=== PATIENT | male | born 1955 | race Caucasian/White ===

== ENCOUNTER 2022-03-23 08:49 | Inpatient (IN) | payer OTHER, MEDICARE ==
[~2022-03-23] VITALS: Ht 170.2 cm; Wt 95.3 kg
[~2022-03-23 08:49] MED LIST: DIAZ5 PO; OXYACE5T PO
[2022-03-23] MEDS ORDERED: METO25ER PO (09:05)
[2022-03-23 09:15] LABS: Calcium, Ionized (POC) 1.12 mmol/L (1.10-1.46); Chloride (POC) 103 mmol/L (98-108); Creatinine (POC) 0.8 mg/dL (0.8-1.3); Glucose (ISTAT POC) 153 mg/dL (70-99); Hemoglobin (POC) 16.7 g/dL (13.5-17.5); Potassium (POC) 4.3 mmol/L (3.5-5.5); Sodium (POC) 138 mmol/L (135-148); Total CO2 (POC) 22 mmol/L (21-32)
[2022-03-23 09:19] LABS: BASOPHILS ABSOLUTE AUTO 0.07 K/mm3 (0.00-0.23); BASOPHILS PERCENT AUTO 1 % (0-2); EOSINOPHILS ABSOLUTE AUTO 0.15 K/mm3 (0.00-0.68); EOSINOPHILS PERCENT AUTO 1 % (0-6); Hematocrit 45.2 % (37.0-53.0); Hemoglobin 16.1 g/dL (13.5-17.5); IMMATURE GRAN ABSOLUTE AUTO 0.05 K/mm3 (0.00-0.10); IMMATURE GRAN PERCENT AUTO 0 % (0-1); LYMPHOCYTES ABSOLUTE AUTO 3.98 K/mm3 (0.84-5.20); LYMPHOCYTES PERCENT AUTO 31 % (21-46); MONOCYTES PERCENT AUTO 6 % (4-13); Mean Corpuscular HGB 31.7 pg (26.0-34.0); Mean Corpuscular HGB Conc 35.6 g/dL (31.5-36.5); Mean Corpuscular Volume 89 fL (80-100); Mean Platelet Volume 9.7 fL (9.1-12.4); NEUTROPHILS ABSOLUTE AUTO 7.77 K/mm3 (1.96-9.15); NEUTROPHILS PERCENT AUTO 61 % (41-73); Platelet Count 235 K/mm3 (150-400); RDW Coefficient Variation 11.7 % (11.7-14.2); RDW Standard Deviation 38.2 fL (35.1-46.3); Red Blood Cell Count 5.08 M/mm3 (4.30-5.90); White Blood Cell Count 12.82 K/mm3 (4.00-11.30)
[2022-03-23 09:31] LABS: Albumin, Blood 4.6 g/dL (3.4-5.0); Albumin/Globulin Ratio 1.4 (0.8-1.8); Bilirubin, Total 0.9 mg/dL (0.1-1.0); Bun/Creatinine Ratio 24.9 (12.0-20.0); Calcium, Blood 9.9 mg/dL (8.5-10.1); Creatinine, Blood 0.8 mg/dL (0.60-1.20); Globulin, Blood 3.3 g/dL (2.2-4.0); Potassium, Blood 4.3 mmol/L (3.5-5.5); Total Protein, Blood 7.9 g/dL (6.4-8.2)
[2022-03-23 10:11] LABS: Influenza A, PCR NEGATIVE (NEGATIVE); Influenza B, PCR NEGATIVE (NEGATIVE); Resp Syncytial Virus, PCR NEGATIVE (NEGATIVE); SARS-Cov-2 (COVID-19) PCR, MMC NEGATIVE (NEGATIVE)
[2022-03-23 10:20] LABS: International Normalized Ratio 1.12; Prothrombin Time Results 11.7 Sec (9.7-11.5)
--- NOTE | 2022-03-23 17:57 | NUR ---
SHIFT SUMMARY PATIENT ARRIVED TO UNIT NEW ADMISSION FROM [facility] AT 1145. RIGHT RADIAL ACCESS WITH TR BAND IN PLACE. SOFT HEMATOMA ABOVE RADIAL SITE, OCCURED IN [facility] DURING TR BAND PLACEMENT. TR BAND REMOVED CHARTED, WRIST IMMOBILIZER REMAINS IN PLACE. PATIENT EDUCATED IN DETAIL REGARDING RESTRICTIONS AND NOT TO USE RIGHT WRIST. PATIENT IN SINUS RHYTHM WITH PACS, POST PCI EKG OBTAINED WELL CXR. A/O, ON ROOM AIR WITH SP02 ABOVE 95%. TOLERATING PO INTAKE AND USING URINAL INDEPENDENTLY. NS AT 150ML/HR FOR ONE LITER INFUSING. PATIENT EMOTIONAL DUE TO RECENT OF SISTER IN LAW AND IS AT HOME ALONE. PROVIDED VERBAL REASSURANCE AND PATIENT HAS COMMUNICATED VIA T/P WITH SEVERAL TIMES. PATIENT ALSO STATED 3/10 TENDERNESS AROUND LEFT SIDE. DENIED ACTIVE CHEST PAIN AND STATED THIS TENDERNESS IS NOT COMPARABLE TO THE CHEST PAIN HE EXPERIENCED. EDUCATED IN DETAIL THE IMPORTANCE OF EARLY INTERVENTION FOR ANY CHEST PAIN, PATIENT VERBALIZED UNDERSTANDING. WILL REPORT TO ONCOMING RN.
--- NOTE | 2022-03-23 19:15 | NUR ---
PT STATES SOME DISCOMFORT IN HIS CHEST AND ARM AND STATES THAT THERE HAS BEEN LITTLE CHANGE IN THE SEVERITY AND QUALITY THROUGH OUT THE DAY.
--- NOTE | 2022-03-23 19:30 | NUR ---
PT REPORT RECEIVEDM SAFETY CHECK COMPLETED, INCLUDING RIGHT RADIAL PUNCTURE SITE CHECK. ASSUMED PT CARE. ORDER NOTED TO NOTIFY HOSPITALIST OF PT ARRIVAL IN ICU, FARHEEN MARTINS WITH THE HOSPITALIST SERVICE WAS NOTIFIED AND HE STATED THAT THEY WILL MOST LIKLY SEE THE PT IN THE MORING, BUT TO CALL IF THERE IS NEEDS OVER NIGHT.
--- NOTE | 2022-03-23 23:23 | NUR ---
2305- PT HAD PERSISTANT COUGHING AND BECAME VERY DIAPHRETIC AND COURSE BREATH SOUNDS WERE NOTED. PT STATED: "ALL OF A SUDDEN IT FEELS LIKE I'M DROWNING". A CALL WAS MADE TO FARHEEN MARTINS WITH THE HOSPITALIST AND AN ORDER WAS RECEIVED FOR A CXR.
[2022-03-24 05:08] LABS: BASOPHILS ABSOLUTE AUTO 0.05 K/mm3 (0.00-0.23); BASOPHILS PERCENT AUTO 0 % (0-2); EOSINOPHILS ABSOLUTE AUTO 0.13 K/mm3 (0.00-0.68); EOSINOPHILS PERCENT AUTO 1 % (0-6); IMMATURE GRAN ABSOLUTE AUTO 0.06 K/mm3 (0.00-0.10); IMMATURE GRAN PERCENT AUTO 0 % (0-1); LYMPHOCYTES ABSOLUTE AUTO 3.01 K/mm3 (0.84-5.20); LYMPHOCYTES PERCENT AUTO 20 % (21-46); MONOCYTES ABSOLUTE AUTO 1.19 K/mm3 (0.16-1.47); MONOCYTES PERCENT AUTO 8 % (4-13); Mean Corpuscular HGB 31.6 pg (26.0-34.0); Mean Corpuscular HGB Conc 35.4 g/dL (31.5-36.5); Mean Corpuscular Volume 89 fL (80-100); Mean Platelet Volume 9.4 fL (9.1-12.4); NEUTROPHILS ABSOLUTE AUTO 10.63 K/mm3 (1.96-9.15); NEUTROPHILS PERCENT AUTO 71 % (41-73); Platelet Count 211 K/mm3 (150-400); RDW Coefficient Variation 11.9 % (11.7-14.2); RDW Standard Deviation 38.5 fL (35.1-46.3); Red Blood Cell Count 5.38 M/mm3 (4.30-5.90); White Blood Cell Count 15.07 K/mm3 (4.00-11.30)
[2022-03-24 05:46] LABS: Albumin/Globulin Ratio 1.1 (0.8-1.8); Bilirubin, Total 1.1 mg/dL (0.1-1.0); Bun/Creatinine Ratio 19.7 (12.0-20.0); Calcium, Blood 9.2 mg/dL (8.5-10.1); Creatinine, Blood 0.71 mg/dL (0.60-1.20); Globulin, Blood 3.5 g/dL (2.2-4.0); Potassium, Blood 3.8 mmol/L (3.5-5.5); Total Protein, Blood 7.5 g/dL (6.4-8.2)
--- NOTE | 2022-03-24 07:13 | NUR ---
SHIFT SUMMARY: PT HAS REMAINED AA&OX4 OVER NIGHT. INITIALLY PT STSTED THAT HIS CHEST PAIN WAS A 4-5 AND HAD BEEN STABLE IN RATE AND QUALITY SINCE THE ANGIO. AROUND 2129 PT HAD AN EPISODE OF SEVERE COUGHING WITH WET BREATH SOUNDS THAT LASTED ABOUT 15 MINUTES BUT HIS SPO2 WAS STABLE. PT WAS NOTED TO BE VERY DIAPHORETIC, BUT HE DENIED ANY CHANGE TO THE CHEST PAIN HE HED BEEN FEELING. FARHEEN MARTINS WITH THE HOSPITALIST SERVICE WAS NOTIFIED AND AN ORDER WAS RECEIVED FOR A CXR WHICH WAS DONE. THE CIOUGH AND WET BREATH SOUNDS RESOLVED WITHOUT FURTHER INTERVENTION AND THE PT'S CHEST PAIN SLOWLY RESOLVED THROUGH THE NIGHT UNTIL HE STATED IT HAD DECREASED TO 1-2. PT WAS ABLE TO SLEEP FOR PART OF THE NIGHT. PT TOLLERATED PO INTAKE WELL AND WAS ABLE VOID WITH GOOD URINE OUT PUT. WITH AM LABS, DR. SOLIS WAS NOTIFIED OF A CRITICAL TROPONIN LEVEL OF [id number].
--- NOTE | 2022-03-24 09:12 | NUR ---
ASSUMPTION OF CARE RECEIVED REPORT FROM TRACEY ESPINOZA AT 0710, ASSUMED CARE OF PATIENT. PATIENT IN BED, A/O, STATES PAIN 1/10 TENDERNESS AROUND LEFT SIDE OF CHEST AND BACK. STATED IT HAS SIGNIFICANTLY IMPROVED. VITALS STABLE, ON ROOM AIR. RIGHT RADIAL SITE SOFT, NON-TENDER, NO BLEEDING. REVIEWED ORDERS, AWAITING DR. SOLIS TO REVIEW PLAN OF CARE FOR THIS SHIFT. WILL TREAT PRESCRIBED.
--- NOTE | 2022-03-24 18:04 | NUR ---
SHIFT SUMMARY NO ACUTE CHANGES THROUGH SHIFT. VITALS STABLE ON ROOM AIR. ECHO OBTAINED PER DR. CAZARES, PLAN TO DISCHARGE HOME TOMORROW IF REMAINS STABLE. RIGHT RADIAL SITE REMAINED STABLE WITH NO CHANGES. AMBULATES INDEPENDENTLY WITH STEADY GAIT. TOLERATING MEALS, AND USING URINAL WITH ADEQUATE OUTPUT. CALL LIGHT WITHIN REACH, WILL REPORT TO ONCOMING RN.
--- NOTE | 2022-03-25 04:19 | NUR ---
A&OX4. DENIES CHEST PAIN OR DISCOMFORT. RESTED OVER NIGHT. INDEPENDENT WITH SELF CARE. PLEASENT.
--- NOTE | 2022-03-25 05:45 | NUR ---
PT LEFT FOR CT AROUND 0545.
--- NOTE | 2022-03-25 06:08 | NUR ---
PT BACK FROM CT AROUND 604.
--- NOTE | 2022-03-25 08:15 | NUR ---
ASSUMED CARE REPORT FROM BERKLEY RN AT 0700. PT RESTING IN BED. DENIES CHEST PAIN, SOB OR TOHER SYMPTOMS. A&OX 4. ANSWERS QUESTIONS APPROPRIATELY. LUNGS CLEAR. O2 SATS >93% ON RA. BP STABLE. SR c PAC ON MONITOR. RIGHT RADIAL ACCESS WNL. DRESSING INTACT. PT INDEPENDENT IN ROOM. ANTICIPATE D/C THIS SHIFT. WILL CONTINUE TO MONITOR.
[2022-03-25] MEDS ORDERED: LISI5 PO (11:13)
[2022-03-25] MEDS ORDERED: ASPI81CH PO (11:13)
[2022-03-25] MEDS ORDERED: ATOR40TA PO (11:13)
[2022-03-25] MEDS ORDERED: TICA90TA PO (11:14)
[2022-03-25] MEDS ORDERED: PANT40 PO (11:17)
--- NOTE | 2022-03-25 12:13 | NUR ---
D/C INSTRUCTIONS REVIEWED c PT, VERBALIZED UNDERSTANDING. COUPON FOR BRILENTA GIVEN. PT UNDERSTANDS IMPORTANCE OF MED COMPLIANCE. RX FAXED TO [facility]. IV'S REMOVED, PRESSURE DRESSINGS APPLIED. RADIAL SITE REMAINS WNL. WALKED OUT OF DEPARTMENT.
== END 2022-03-25 12:15 | disposition home or self-care (01) | DRG 247 ==
LOC: ER 08:49 → ICUW 09:32
PROVIDERS: Emergency Medicine; ADMIT Internal Medicine Interventional Cardiology
PROC: 027035Z Dilation of Coronary Artery, One Artery with Two Drug-eluting Intraluminal Devices, Percutaneous Approach (ICD-10-PCS; principal; 2022-03-23)
PROC: 4A023N7 Measurement of Cardiac Sampling and Pressure, Left Heart, Percutaneous Approach (ICD-10-PCS; 2022-03-23)
PROC: B2111ZZ Fluoroscopy of Multiple Coronary Arteries using Low Osmolar Contrast (ICD-10-PCS; 2022-03-23)
PROC: B2151ZZ Fluoroscopy of Left Heart using Low Osmolar Contrast (ICD-10-PCS; 2022-03-23)
PROC: B240ZZ3 Ultrasonography of Single Coronary Artery, Intravascular (ICD-10-PCS; 2022-03-23)
DX: I21.4 Non-ST elevation (NSTEMI) myocardial infarction (principal); I31.9 Disease of pericardium, unspecified; I10 Essential (primary) hypertension; I25.10 Atherosclerotic heart disease of native coronary artery without angina pectoris; Z20.822 Contact with and (suspected) exposure to COVID-19; F17.210 Nicotine dependence, cigarettes, uncomplicated; E78.5 Hyperlipidemia, unspecified; I95.9 Hypotension, unspecified; I24.9 Acute ischemic heart disease, unspecified; Z88.0 Allergy status to penicillin; Z79.899 Other long term (current) drug therapy
CPT/HCPCS: 0241U; 36415; 71045; 71250; 76937; 80047; 80053; 83036; 84484; 85014; 85025; 85520; 85610; 85730; 92978; 93005; 93010; 93306; 93458; 96374; 99152; 99153; 99285-25; A9270; C1725; C1753; C1769; C1874; C1887; C1894; C9600; J1644; J1650; J2250; J2370; J2405; J3010; J7030; J7040; Q9967